=== PATIENT | male | born 1995 ===

== ENCOUNTER 2018-12-20 19:13 | Emergency (ER) | payer SELFPAY ==
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
[2018-12-20 22:56] VITALS: O2SAT 100
[2018-12-20 22:57] VITALS: BP 135/78; TEMP 98.5
[2018-12-23 16:48] LABS: HIV AG/AB 4TH GEN Non-reactive (Non-reactive)
== END 2018-12-20 22:11 | disposition home or self-care (01) ==
LOC: ER 19:13
DX: S61.231A Puncture wound without foreign body of left index finger without damage to nail, initial encounter (principal); W46.1XXA Contact with contaminated hypodermic needle, initial encounter; Y93.9 Activity, unspecified; Y92.9 Unspecified place or not applicable
CPT/HCPCS: 86706; 87389; 99283